=== PATIENT | female | born 2000 ===

== ENCOUNTER 2022-09-05 15:43 | Outpatient (REF) | payer OTHER, SELFPAY ==
[2022-09-06 09:41] LABS: Syphilis Serology (RPR) Negative (Negative)
[2022-09-06 10:58] LABS: HIV-1/2 Ag & Ab Screen Negative (Negative)
[2022-09-13 13:39] LABS: Chlamydia Result Negative (Negative); GC Result Negative (Negative)
== END 2022-09-05 15:44 | disposition home or self-care (01) ==
LOC: LBN 15:43
PROVIDERS: Visit Provider Family Medicine
DX: Z11.4 Encounter for screening for human immunodeficiency virus [HIV] (principal); Z11.3 Encounter for screening for infections with a predominantly sexual mode of transmission; Z11.59 Encounter for screening for other viral diseases
CPT/HCPCS: 87389; 87491; 87591; 86592